=== PATIENT | male | born 1960 | race African-American/Black ===

== ENCOUNTER 2018-04-17 16:48 | Inpatient (IN) | payer OTHER ==
--- NOTE | 2018-04-17 20:45 | HP ---
COWS - Scale Resting Pulse: 0= [place] 80 or Below Sweatin=Flushed/Facial Moisture Restless Observation: 1= Difficult to Sit Still Pupil Size: 1= Pupils >than Normal Bone or Joint Aches: 4=Acute Joint/Muscle Pain Runny Nose/ Eye Tearin= Runny Nose/Eyes GI Upset > 30mins: 3= Vomiting/Diarrhea (vomiting x 1, diarrhea x 2) Tremor Observation: 2= Slight Tremor Visible Yawning Observation: 0= None Anxiety or Irritability: 1=Feels Anxious/Irritable Goose Flesh Skin: 0=Smooth Skin COWS Score: 16 CIWA Score Nausea/Vomitin (vomiting x 1) Muscle Tremors: 3 Anxiety: 3 Agitation: 0-Normal Activity Paroxysmal Sweats: 2 Orientation: 0-Oriented Tacttile Disturbances: 2-Mild Itch/Numbness/Burn Auditory Disturbances: 0-None Visual Disturbances: 0-None Headache: 4-Moderately Severe CIWA-Ar Total Score: 16 - Admission Criteria [facility] Guidelines: Admission for Medically Managed Detox: Requires at least one of the followin. CIWA greater than 12 2. Seizures within the past 24 hours 3. Delirium tremens within the past 24 hours 4. Hallucinations within the past 24 hours 5. Acute intervention needed for co occurring medical disorder 6. Acute intervention needed for co occurring psychiatric disorder 7. Severe withdrawal that cannot be handled at a lower level of care (continued vomiting, continued diarrhea, abnormal vital signs) requiring intravenous medication and/or fluids 8. Admission ROS [facility] Chief Complaint: Heroin and alcohol withdrawal symptoms Allergies/Adverse Reactions: Allergies Allergy/AdvReac Type Severity Reaction Status Date / Time naproxen [From Naprosyn] Allergy Verified 04/17/18 20:49 History of Present Illness: 57 years old male with a history of heroin and alcohol dependence is seeking admission to detox. Patient has been in detox at [facility] and reports a year of sobriety. He denies past medical history and suicidal attempt/ ideation at this time. Exam Limitations: No Limitations - Ebola screening Have you traveled outside of the country in the last 21 days: No (N) Have you had contact with anyone from an Ebola affected area: No Do you have a fever: No - Review of Systems Constitutional: Chills, Loss of Appetite, Night Sweats, Changes in sleep EENT: reports: No Symptoms Reported Respiratory: reports: No Symptoms reported Cardiac: reports: No Symptoms Reported GI: reports: Diarrhea, Nausea, Poor Appetite, Poor Fluid Intake, Abdominal cramping : reports: No Symptoms Reported Musculoskeletal: reports: Joint Pain, Muscle Pain Integumentary: reports: Dryness Neuro: reports: Headache, Tremors Endocrine: reports: No Symptoms Reported Hematology: reports: No Symptoms Reported Psychiatric: reports: Mood/Affect Appropiate, Orientated x3, Agitated Other Systems: Reviewed and Negative Patient History - Patient Medical History Hx Anemia: No Hx Asthma: No Hx Chronic Obstructive Pulmonary Disease (COPD): No Hx Cancer: No Hx Cardiac Disorders: No Hx Congestive Heart Failure: No Hx Hypertension: No Hx Hypercholesterolemia: No HX Cerebrovascular Accident: No Hx Seizures: No Hx Dementia: No Hx Diabetes: No Hx Gastrointestinal Disorders: No Hx Liver Disease: No Hx Genitourinary Disorders: No Hx Sexually Transmitted Disorders: No Hx Renal Disease (ESRD): No Hx Thyroid Disease: No Hx Human Immunodeficiency Virus (HIV): No (Negative 2018) Hx Hepatitis C: No Hx Depression: No Hx Suicide Attempt: No (Denies suicidal ideation at this time) Hx Bipolar Disorder: No Hx Schizophrenia: No - Patient Surgical History Past Surgical History: No - PPD History Previous Implant?: Yes Documented Results: Negative w/o proof Implanted On Prior [facility] Admission?: No PPD to be Administered?: Yes - Reproductive History Patient is a Female of Child Bearing Age (11 -55 yrs old): No (MALE) - Smoking Cessation Smoking history: Current every day smoker Have you smoked in the past 12 months: Yes Aproximately how many cigarettes per day: 2 Hx Chewing Tobacco Use: No Initiated information on smoking cessation: Yes 'Breaking Loose' booklet given: 04/17/18 - Substance & Tx. History Hx Alcohol Use: Yes Hx Substance Use: Yes Substance Use Type: Alcohol, Cocaine, Heroin, Opiates Hx Substance Use Treatment: Yes - Substances Abused Heroin Route: Inhalation Frequency: Daily Amount used: 20 BAGS Age of first use: 24 Date of Last Use: 04/17/18 Cocaine Route: Smoking Frequency: Daily Amount used: 10 BAGS Age of first use: 24 Date of Last Use: 04/17/18 Alcohol Route: Oral Frequency: Daily Amount used: VODKA - 3 NIPS, AC BEER - 2 BOTTLES Age of first use: 15 Date of Last Use: 04/17/18 Family Disease History - Family Disease History Family History: Denies Admission Physical Exam [facility] - Physical General Appearance: Yes: Moderate Distress, Tremorous, Irritable HEENTM: Yes: EOMI, Normal ENT Inspection, Normal Voice, BINTA, Microcephalic Respiratory: Yes: Normal Breath Sounds, No Respiratory Distress Neck: Yes: Supple Breast: Yes: Breast Exam Deferred Cardiology: Yes: Regular Rhythm, Tachycardia Abdominal: Yes: Within Normal Limits Genitourinary: Yes: Within Normal Limits Back: Yes: Normal Inspection Extremities: Yes: Tremors, Other (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 PATIENT REPORTS THAT HE WAS INJURED WHILE WORKING. 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, Alert, Normal Mood/Affect Integumentary: Yes: Warm Lymphatic: Yes: Within Normal Limits - Diagnostic (1) Alcohol dependence with uncomplicated withdrawal Current Visit: Yes Status: Chronic (2) Cocaine dependence, uncomplicated Current Visit: Yes Status: Chronic (3) Opioid dependence with withdrawal Current Visit: Yes Status: Chronic (4) Nicotine dependence Current Visit: Yes Status: Chronic Qualifiers: Nicotine product type: cigarettes Substance use status: uncomplicated Qualified Code(s): F17.210 - Nicotine dependence, cigarettes, uncomplicated Cleared for Admission [facility] - Detox or Rehab [facility] Level of Care: Medically Managed Detox Regimen/Protocol: Methadone/Librium
[2018-04-17] MEDS ORDERED: guaiFENesin/D-METHORPHAN HB 10 ML UNIT-DOSE CUPS PO PRN (21:22)
[2018-04-17] MEDS ORDERED: MENTHOL/PHENOL 1 EACH UD MM PRN (21:22)
[2018-04-17] MEDS ORDERED: LOPERAMIDE HCL 2 MG CAPSULE PO PRN (21:22)
[2018-04-17] MEDS ORDERED: NICOTINE POLACRILEX 2 MG GUM BC PRN (21:22)
[2018-04-17] MEDS ORDERED: METHADONE HCL 10 MG TABLET (FOR DETOX USE ONLY) PO ONE ×2 (21:22→23:00)
[2018-04-17] MEDS ORDERED: P-EPHED 60MG/TRIPROLIDI 2.5MG TABLET PO PRN (21:22)
[2018-04-17] MEDS ORDERED: MAGNESIUM CITRATE 300 ML BOTTLE PO PRN (21:22)
[2018-04-17] MEDS ORDERED: IBUPROFEN 400 MG TABLET (FP) PO PRN (21:22)
[2018-04-17] MEDS ORDERED: MAGNESIUM HYDROX 2400MG/30ML ORAL SUSPENSION 30 ML CUP PO PRN (21:22)
[2018-04-17] MEDS ORDERED: chlordiazePOXIDE HCL 25 MG CAPSULE PO PRN (21:22)
[2018-04-17] MEDS ORDERED: MAG HYDROX/AL HYDROX/SIMETH 30 ML UNIT-DOSE CUP PO PRN (21:22)
[2018-04-17] MEDS ORDERED: MELATONIN 5 MG TABLETS PO PRN (22:00)
[2018-04-17] MEDS: chlordiazePOXIDE HCL 25 MG CAPSULE PO SCH (23:38)
[2018-04-17] MEDS: ACETAMINOPHEN 325 MG TABLET (FP) PO PRN (23:42)
[2018-04-17] MEDS: THIAMINE HCL 100 MG TABLET (FP) PO SCH (23:43)
[2018-04-18] MEDS: chlordiazePOXIDE HCL 25 MG CAPSULE PO SCH ×4 (05:21→22:19)
[2018-04-18 09:59] LABS: HEMOGLOBIN 11.3 GM/dL (11.7-16.9); RDW 15.6 % (11.9-15.9)
[2018-04-18] MEDS ORDERED: METHADONE HCL 10 MG TABLET (FOR DETOX USE ONLY) PO SCH (10:00)
[2018-04-18 10:05] LABS: MCH 28.3 pg (25.7-33.7); MCHC 34.2 g/dl (32.0-35.9); MEAN CELL VOLUME 82.8 fl (80-96); PLATELET COUNT 287 K/MM3 (134-434); RBC 3.98 M/mm3 (4.00-5.60); WHITE BLOOD COUNT 4.3 K/mm3 (4.0-10.0)
--- NOTE | 2018-04-18 10:24 | PN ---
[facility] CIWA - CIWA Score Nausea/Vomitin-Mild Nausea/No Vomiting Muscle Tremors: 3 Anxiety: 2 Agitation: 3 Paroxysmal Sweats: 1-Minimal Palms Moist Orientation: 1-Uncertain about Date Tacttile Disturbances: 0-None Auditory Disturbances: 0-None Visual Disturbances: 0-None Headache: 1-Very Mild CIWA-Ar Total Score: 12 [facility] COWS - Scale Resting Pulse: 0= [place] 80 or Below Sweatin= Chills/Flushing Restless Observation: 1= Difficult to Sit Still Pupil Size: 0= Normal to Room Light Bone or Joint Aches: 2= Severe Diffuse Aches Runny Nose/ Eye Tearin= Nasal Congestion GI Upset > 30mins: 2= Nausea/Diarrhea Tremor Observation of Outstretched Hands: 1= Tremor [place], Not Seen Yawning Observation: 1= 1-2x During Session Anxiety or Irritability: 2=Irritable/Anxious Goose Flesh Skin: 0=Smooth Skin COWS Score: 11 [facility] Progress Note (SOAP) Subjective: left hand dressing intact no acute bleeding encourage elevation of the left arm at all time left hand trauma "two" months ago "got infected" went to the hospital to "clean up" few weeks ago, feeling better Objective: 04/18/18 12:22 Vital Signs Temperature 98.4 F 04/18/18 10:56 Pulse Rate 70 04/18/18 10:56 Respiratory Rate 20 04/18/18 10:56 Blood Pressure 106/63 04/18/18 10:56 O2 Sat by Pulse Oximetry (%) Laboratory Last Values WBC 4.3 K/mm3 (4.0-10.0) 04/18/18 08:00 RBC 3.98 M/mm3 (4.00-5.60) L 04/18/18 08:00 Hgb 11.3 GM/dL (11.7-16.9) L 04/18/18 08:00 Hct 33.0 % (35.4-49) L 04/18/18 08:00 MCV 82.8 fl (80-96) 04/18/18 08:00 MCH 28.3 pg (25.7-33.7) 04/18/18 08:00 MCHC 34.2 g/dl (32.0-35.9) 04/18/18 08:00 RDW 15.6 % (11.9-15.9) 04/18/18 08:00 Plt Count 287 K/MM3 (134-434) 04/18/18 08:00 MPV 8.0 fl (7.5-11.1) 04/18/18 08:00 Sodium 141 mmol/L (136-145) 04/18/18 08:00 Potassium 4.1 mmol/L (3.5-5.1) 04/18/18 08:00 Chloride 108 mmol/L (98-107) H 04/18/18 08:00 Carbon Dioxide 28 mmol/L (21-32) 04/18/18 08:00 Anion Gap 5 MMOL/L (8-16) L 04/18/18 08:00 BUN 13 mg/dL (7-18) 04/18/18 08:00 Creatinine 1.0 mg/dL (0.55-1.3) 04/18/18 08:00 Creat Clearance w eGFR > 60 (>60) 04/18/18 08:00 Random Glucose 84 mg/dL (74-106) 04/18/18 08:00 Calcium 8.3 mg/dL (8.5-10.1) L 04/18/18 08:00 Total Bilirubin 0.2 mg/dL (0.2-1) 04/18/18 08:00 AST 19 U/L (15-37) 04/18/18 08:00 ALT 26 U/L (13-61) 04/18/18 08:00 Alkaline Phosphatase 76 U/L (45-117) 04/18/18 08:00 Total Protein 5.4 g/dl (6.4-8.2) L 04/18/18 08:00 Albumin 2.8 g/dl (3.4-5.0) L 04/18/18 08:00 RPR Titer Nonreactive (NONREACTIVE) 04/18/18 08:00 lab noted Assessment: 04/18/18 12:23 withdrawal sx Plan: continue detox elevation of the left arm
[2018-04-18] MEDS: PRENATAL VITAMINS W/ FOLIC ACID TABLET (FP) PO SCH (11:11)
[2018-04-18] MEDS: ACETAMINOPHEN 325 MG TABLET (FP) PO PRN ×2 (11:11→17:41)
[2018-04-18] MEDS: NICOTINE 14 MG/24 HOURS TOPICAL PATCH TD SCH (11:13)
[2018-04-18 11:24] LABS: ALBUMIN 2.8 g/dl (3.4-5.0); ALK PHOS 76 U/L (45-117); ANION GAP 5 MMOL/L (8-16); BILIRUBIN,TOTAL 0.2 mg/dL (0.2-1); BLOOD UREA NITROGEN 13 mg/dL (7-18); CALCIUM 8.3 mg/dL (8.5-10.1); CHLORIDE 108 mmol/L (98-107); CO2 28 mmol/L (21-32); GLUCOSE,RANDOM 84 mg/dL (74-106); POTASSIUM 4.1 mmol/L (3.5-5.1); SGOT/AST 19 U/L (15-37); SGPT/ALT 26 U/L (13-61); SODIUM 141 mmol/L (136-145); TOT PROT 5.4 g/dl (6.4-8.2)
[2018-04-18] MEDS ORDERED: BACITRACIN 0.9 GM PACKET TP ONE (12:45)
[2018-04-18 15:22] VITALS: BMI 20.5
[2018-04-18] MEDS: SODIUM CHLORIDE NASAL SPRAY 44 ML BOTTLE NS SCH ×2 (15:31→22:18)
[2018-04-18] MEDS: THIAMINE HCL 100 MG TABLET (FP) PO SCH (22:19)
[2018-04-19] MEDS: SODIUM CHLORIDE NASAL SPRAY 44 ML BOTTLE NS SCH ×3 (05:29→22:32)
[2018-04-19] MEDS: chlordiazePOXIDE HCL 25 MG CAPSULE PO SCH ×3 (05:29→17:40)
[2018-04-19] MEDS: ACETAMINOPHEN 325 MG TABLET (FP) PO PRN ×2 (05:31→10:42)
--- NOTE | 2018-04-19 09:32 | PN ---
S CIWA - CIWA Score Nausea/Vomitin-Mild Nausea/No Vomiting Muscle Tremors: 3 Anxiety: 2 Agitation: 2 Paroxysmal Sweats: 1-Minimal Palms Moist Orientation: 0-Oriented Tacttile Disturbances: 0-None Auditory Disturbances: 0-None Visual Disturbances: 0-None Headache: 2-Mild CIWA-Ar Total Score: 11 [facility] COWS - Scale Resting Pulse: 0= [place] 80 or Below Sweatin= Chills/Flushing Restless Observation: 0= Sits Still Pupil Size: 0= Normal to Room Light Bone or Joint Aches: 1= Mild Discomfort Runny Nose/ Eye Tearin= Nasal Congestion GI Upset > 30mins: 1= Stomach Cramp Tremor Observation of Outstretched Hands: 1= Tremor [place], Not Seen Yawning Observation: 1= 1-2x During Session Anxiety or Irritability: 2=Irritable/Anxious Goose Flesh Skin: 0=Smooth Skin COWS Score: 8 S Progress Note (SOAP) Subjective: body aches muscle pain tremor sweat reported left hand feeling better, dressing was changed and denies pain wrist free range of motion +2 pulse 4th finger tig warm to touch pink Objective: 04/19/18 09:35 Vital Signs Temperature 98.5 F 04/19/18 09:15 Pulse Rate 71 04/19/18 09:15 Respiratory Rate 18 04/19/18 09:15 Blood Pressure 97/61 04/19/18 09:15 O2 Sat by Pulse Oximetry (%) Laboratory Last Values WBC 4.3 K/mm3 (4.0-10.0) 04/18/18 08:00 RBC 3.98 M/mm3 (4.00-5.60) L 04/18/18 08:00 Hgb 11.3 GM/dL (11.7-16.9) L 04/18/18 08:00 Hct 33.0 % (35.4-49) L 04/18/18 08:00 MCV 82.8 fl (80-96) 04/18/18 08:00 MCH 28.3 pg (25.7-33.7) 04/18/18 08:00 MCHC 34.2 g/dl (32.0-35.9) 04/18/18 08:00 RDW 15.6 % (11.9-15.9) 04/18/18 08:00 Plt Count 287 K/MM3 (134-434) 04/18/18 08:00 MPV 8.0 fl (7.5-11.1) 04/18/18 08:00 Sodium 141 mmol/L (136-145) 04/18/18 08:00 Potassium 4.1 mmol/L (3.5-5.1) 04/18/18 08:00 Chloride 108 mmol/L (98-107) H 04/18/18 08:00 Carbon Dioxide 28 mmol/L (21-32) 04/18/18 08:00 Anion Gap 5 MMOL/L (8-16) L 04/18/18 08:00 BUN 13 mg/dL (7-18) 04/18/18 08:00 Creatinine 1.0 mg/dL (0.55-1.3) 04/18/18 08:00 Creat Clearance w eGFR > 60 (>60) 04/18/18 08:00 Random Glucose 84 mg/dL (74-106) 04/18/18 08:00 Calcium 8.3 mg/dL (8.5-10.1) L 04/18/18 08:00 Total Bilirubin 0.2 mg/dL (0.2-1) 04/18/18 08:00 AST 19 U/L (15-37) 04/18/18 08:00 ALT 26 U/L (13-61) 04/18/18 08:00 Alkaline Phosphatase 76 U/L (45-117) 04/18/18 08:00 Total Protein 5.4 g/dl (6.4-8.2) L 04/18/18 08:00 Albumin 2.8 g/dl (3.4-5.0) L 04/18/18 08:00 RPR Titer Nonreactive (NONREACTIVE) 04/18/18 08:00 lab noted ca++ rich food Assessment: 04/19/18 09:37 withdrawal sx Plan: continue detox
[2018-04-19] MEDS ORDERED: BACITRACIN 0.9 GM PACKET TP SCH (10:00)
[2018-04-19] MEDS: METHADONE HCL 5 MG TABLET (FOR DETOX USE ONLY) PO SCH (10:39)
[2018-04-19] MEDS: NICOTINE 14 MG/24 HOURS TOPICAL PATCH TD SCH (10:43)
[2018-04-19] MEDS: PRENATAL VITAMINS W/ FOLIC ACID TABLET (FP) PO SCH (11:06)
[2018-04-19] MEDS: NEOMYCIN/POLYMYXIN/BACITRACIN (TRIPLE ANTIBIOTIC) 28 GM OINTMENT TP SCH (15:38)
[2018-04-19 17:22] LABS: URINE APPEARANCE CLEAR; URINE BILIRUBIN NEGATIVE (<2.0 mg/dL); URINE COLOR STRAW; URINE GLUCOSE (UA) NEGATIVE (NEGATIVE); URINE KETONE NEGATIVE (NEGATIVE); URINE LEUK ESTERASE NEGATIVE (NEGATIVE); URINE NITRITE NEGATIVE (NEGATIVE); URINE PROTEIN NEGATIVE (NEGATIVE); URINE UROBILINOGEN NEGATIVE mg/dL (0.2-1.0)
[2018-04-19] MEDS: chlordiazePOXIDE 5 MG CAPSULE PO SCH (22:32)
[2018-04-19] MEDS: THIAMINE HCL 100 MG TABLET (FP) PO SCH (22:32)
[2018-04-20] MEDS: chlordiazePOXIDE 5 MG CAPSULE PO SCH ×3 (05:13→17:21)
[2018-04-20] MEDS: ACETAMINOPHEN 325 MG TABLET (FP) PO PRN ×3 (05:13→22:47)
[2018-04-20] MEDS: SODIUM CHLORIDE NASAL SPRAY 44 ML BOTTLE NS SCH ×3 (07:00→22:13)
--- NOTE | 2018-04-20 09:27 | PN ---
[facility] Progress Note (SOAP) Subjective: alert,irritable,pain in the left ring finger,body Objective: 04/20/18 09:20 Vital Signs Temperature 97.7 F 04/20/18 06:31 Pulse Rate 118 H 04/20/18 06:31 Respiratory Rate 18 04/20/18 06:31 Blood Pressure 106/74 04/20/18 06:31 O2 Sat by Pulse Oximetry (%) Assessment: 04/20/18 09:21 left ring finger marked swelling with pain and tenderness,wound palmar surface of left ring finger ,unable to do flexion of left ring finger, and extension,injuty at the end of February 2018 has been treated at [facility] admitted for 12 days,discharged in March 2018,drainage from the wound, clean with nss and tiple antibiotics ointment 04/20/18 09:28 Plan: patient to be transferred to [facility] er for evaluation and treatment impression old laceration with infected wound of left ring finger r/o tendon injury,r/o osteomyelitis marked swelling and limitation of movement opioid dependence with withdrawal cocaine dependence cannabis dependence treatment to er for evaluation and treatment,spoke with dr.Norman Leary ,endorsed to to be transported by [facility]
[2018-04-20] MEDS: PRENATAL VITAMINS W/ FOLIC ACID TABLET (FP) PO SCH (10:24)
[2018-04-20] MEDS: METHADONE HCL 5 MG TABLET (FOR DETOX USE ONLY) PO SCH (10:24)
[2018-04-20] MEDS: NEOMYCIN/POLYMYXIN/BACITRACIN (TRIPLE ANTIBIOTIC) 28 GM OINTMENT TP SCH (10:37)
[2018-04-20] MEDS: NICOTINE 14 MG/24 HOURS TOPICAL PATCH TD SCH (11:40)
[2018-04-20] MEDS: THIAMINE HCL 100 MG TABLET (FP) PO SCH (22:13)
[2018-04-20] MEDS: chlordiazePOXIDE HCL 10 MG CAPSULE PO SCH (22:13)
[2018-04-21] MEDS: SODIUM CHLORIDE NASAL SPRAY 44 ML BOTTLE NS SCH (05:27)
[2018-04-21] MEDS: chlordiazePOXIDE HCL 10 MG CAPSULE PO SCH (05:27)
[2018-04-21] MEDS: ACETAMINOPHEN 325 MG TABLET (FP) PO PRN (05:28)
[2018-04-21 06:12] VITALS: BP 98/61; PULSE 68; TEMP 98.6
[2018-04-21] MEDS ORDERED: METHADONE HCL 10 MG TABLET (FOR DETOX USE ONLY) PO SCH (10:00)
[2018-04-21] MEDS ORDERED: METHADONE HCL 5 MG TABLET (FOR DETOX USE ONLY) PO ONE (10:00)
--- NOTE | 2018-04-21 11:49 | DS ---
[facility] Detox Discharge Summary Admission Date: 04/17/18 Discharge Date: 04/21/18 - History Present History: Alcohol Dependence, Opioid Dependence Additional Comments: PT REPORTS HE HAS APPOINTMENT FOLLOW UP FOR SURGERY OF HIS LEFT FINGERS ON AT [facility]. PT WAS SEEN AT [facility] ER 04/20/17 FOR PAIN TO SAME AREA(PLEASE SEE ER NOTE). PT DECIDED TO LEAVE TODAY ON HIS OWN AFTER MAKING A PHONE CALL TO HIS WHO INSTRUCTED PT TO COME HOME TODAY INSTEAD OF TOMORROW PER PATIENT TO STAFF. ALERT O X 3 WITH STEADY GAIT. NAD BUT FOR FINGER PAIN. Pertinent Past History: PLEASE SEE DX BELOW - Physical Exam Results Vital Signs: Vital Signs Temperature 98.6 F 04/21/18 06:11 Pulse Rate 68 04/21/18 06:11 Respiratory Rate 16 04/21/18 06:11 Blood Pressure 98/61 04/21/18 06:11 O2 Sat by Pulse Oximetry (%) Pertinent Admission Physical Exam Findings: WITHDRAWAL SX Laboratory Tests 04/18/18 04/18/18 04/18/18 08:00 08:00 08:00 WBC 4.3 RBC 3.98 L Hgb 11.3 L Hct 33.0 L MCV 82.8 MCH 28.3 MCHC 34.2 RDW 15.6 Plt Count 287 MPV 8.0 Sodium 141 Potassium 4.1 Chloride 108 H Carbon Dioxide 28 Anion Gap 5 L BUN 13 Creatinine 1.0 Creat Clearance w eGFR > 60 Random Glucose 84 Calcium 8.3 L Total Bilirubin 0.2 AST 19 ALT 26 Alkaline Phosphatase 76 Total Protein 5.4 L Albumin 2.8 L Urine Color Urine Appearance Urine pH Ur Specific Bath Urine Protein Urine Glucose (UA) Urine Ketones Urine Blood Urine Nitrite Urine Bilirubin Urine Urobilinogen Ur Leukocyte Esterase RPR Titer Nonreactive 04/19/18 12:45 WBC RBC Hgb Hct MCV MCH MCHC RDW Plt Count MPV Sodium Potassium Chloride Carbon Dioxide Anion Gap BUN Creatinine Creat Clearance w eGFR Random Glucose Calcium Total Bilirubin AST ALT Alkaline Phosphatase Total Protein Albumin Urine Color Straw Urine Appearance Clear Urine pH 5.0 Ur Specific Bath 1.015 Urine Protein Negative Urine Glucose (UA) Negative Urine Ketones Negative Urine Blood Negative Urine Nitrite Negative Urine Bilirubin Negative Urine Urobilinogen Negative Ur Leukocyte Esterase Negative RPR Titer - Treatment Hospital Course: Discharged Condition Good - Medication Discharge Medications: Ambulatory Orders Neomycin/Bacitracin/Polymyxinb [Triple Antibiotic Ointment] 1 each TP DAILY 05/05 Oxycodone HCl/Acetaminophen [Percocet 10-325 mg Tablet] 1 each PO 04/17/18 - Diagnosis (1) Abscess of left ring finger Status: Acute (2) Flexor tenosynovitis of finger Status: Acute (3) Alcohol dependence with uncomplicated withdrawal Status: Acute (4) Cocaine dependence, uncomplicated Status: Acute (5) Nicotine dependence Status: Chronic Qualifiers: Nicotine product type: cigarettes Substance use status: in withdrawal Qualified Code(s): F17.213 - Nicotine dependence, cigarettes, with withdrawal (6) Opioid dependence with withdrawal Status: Acute - AMA Did Patient Leave Against Medical Advice: Yes (AMA)
[2018-04-22] MEDS ORDERED: METHADONE HCL 5 MG TABLET (FOR DETOX USE ONLY) PO SCH (06:00)
== END 2018-04-21 10:03 | disposition left against medical advice (07) | DRG 770 ==
LOC: EDBD → YASAS 16:48 → Y3N 22:47
PROC: HZ2ZZZZ Detoxification Services for Substance Abuse Treatment (ICD-10-PCS; principal; 2018-04-17)
DX: F11.23 Opioid dependence with withdrawal (principal); F10.230 Alcohol dependence with withdrawal, uncomplicated; F14.20 Cocaine dependence, uncomplicated; F17.210 Nicotine dependence, cigarettes, uncomplicated; R00.0 Tachycardia, unspecified; L02.512 Cutaneous abscess of left hand; M65.842 Other synovitis and tenosynovitis, left hand
CPT/HCPCS: 36415; 80053; 81003; 85027; 86593

== ENCOUNTER 2018-04-20 11:41 | Emergency (ER) | payer OTHER ==
--- NOTE | 2018-04-20 12:03 | PDOC ---
History of Present Illness - General Chief Complaint: Wound Stated Complaint: Wound Time Seen by Provider: 04/20/18 11:59 History Source: Patient Exam Limitations: No Limitations - History of Present Illness Initial Comments: 57 yo M with no reported medical history presents from [facility] for evaluation of an abscess on on his left ring finger. He reports that he injured his finger in late February while he was working. He originally had it followed and treated at the [facility] in [place] before he came to [facility] but now that he is in [facility] ho no longer has a vascular doctor or a primary care doctor. He was admitted in [place] for 12 days. He has significant pain and tenderness on his finger, is unable to flex or extend the finger. He has been applying Abx cream to the finger. He denies fevers, chills, or infections. Denies chest pain, SOB, difficulty breathing, dysuria, frequency, or urgency. PCP: None Vascular surgeon: None Allergies: naproxen, egg, milk Social Hx: Opiod dependence and withdrawal, alcohol dependence, cocaine dependence, nicotine dependence. PSH: None reported. Past History - Past Medical History Allergies/Adverse Reactions: Allergies Allergy/AdvReac Type Severity Reaction Status Date / Time naproxen [From Naprosyn] Allergy Verified 04/17/18 20:49 egg AdvReac Verified 04/17/18 22:35 milk AdvReac Verified 04/17/18 22:34 Home Medications: Ambulatory Orders Neomycin/Bacitracin/Polymyxinb [Triple Antibiotic Ointment] 1 each TP DAILY 05/05 Oxycodone HCl/Acetaminophen [Percocet 10-325 mg Tablet] 1 each PO 04/17/18 Anemia: No Asthma: No Cancer: No Cardiac Disorders: No CVA: No COPD: No CHF: No Dementia: No Diabetes: No GI Disorders: No Disorders: No HTN: No Hypercholesterolemia: No Kidney Stones: No Liver Disease: No Seizures: No Thyroid Disease: No - Surgical History Abdominal Surgery: No Appendectomy: No Cardiac Surgery: No Cholecystectomy: No Lung Surgery: No Neurologic Surgery: No Orthopedic Surgery: No - Reproductive History Testicular Surgery: No - Suicide/Smoking/Psychosocial Hx Smoking History: Current every day smoker Have you smoked in the past 12 months: Yes Number of Cigarettes Smoked Daily: 2 'Breaking Loose' booklet given: 04/17/18 Hx Alcohol Use: Yes Drug/Substance Use Hx: Yes Substance Use Type: Alcohol, Cocaine, Heroin, Opiates Hx Substance Use Treatment: Yes Review of Systems - Review of Systems Able to Perform ROS?: Yes Comments:: CONSTITUTIONAL: Absent: fever, no chills, no fatigue EYES: Absent: visual changes ENT: Absent: ear pain, no sore throat CARDIOVASCULAR: Absent: chest pain, no palpitations RESPIRATORY: Absent: cough, no SOB GI: Absent: abdominal pain, no nausea, no vomiting, no constipation, no diarrhea GENITOURINARY: Absent: dysuria, no frequency, no hematuria MUSKULOSKELETAL: Present: Finger arthralgia Absent: back pain, no myalgia SKIN: Absent: rash NEURO: Absent: headache *Physical Exam - Physical Exam Comments: GENERAL: Well-appearing, well-nourished. No apparent distress. HEENT: Normocephalic, atraumatic. PERRL, EOM intact. CARDIOVASCULAR: Normal S1, S2. Regular rate and rhythm. PULMONARY: Clear to auscultation bilaterally. ABDOMEN: Soft, non-distended, non-tender. EXTREMITIES: Normal ROM in other 3 extremities. No gross deformities. Left ring finger: There is an open wound on the volar aspect of the finger with sutures. Clearly infected. Absent skin covering. Tendon visible to eye and sticking out. Extremely painful to touch. Cannot flex or extend finger. SKIN: Warm, dry. NEUROLOGICAL: No focal neurological deficits. ED Treatment Course - LABORATORY CBC & Chemistry Diagram: 04/20/18 12:55 04/20/18 12:55 Medical Decision Making - Medical Decision Making 57 yo M with no reported medical history presents from [facility] for evaluation of an abscess on on his left ring finger. - VSS DDx IBNLT: osteomylitis, flexor tenosynovitis, eroded tendon, Abscess. Plan: Pre-OP labs, NPO, IV hydration, Acetaminophen, vascular/hand/ortho/ surgery consult, re-assess. Labs unremarkable and WNL - Spoke with "Sheron from Ortho" at [facility]. - Received multiple I&D's for flexor tenosynovitis. - Notorious malingerer - "lost his pain medicine script" - Drug seeking behavior - Planning to see him for FU in a week or 2 - Skin graft on volar aspect of finger. Return to office for skin graft removal/ treatment - He missed his appointment - Number for him to call - [phone] - Needs to follow up at [place] - Call and ask for Apr 24 on Monday in the orthopedic hospital Will DC patient and have him call the ortho clinic for an appointment on Monday at [facility] *DC/Admit/Observation/Transfer Diagnosis at time of Disposition: Flexor tenosynovitis of finger - Discharge Dispostion Disposition: HOME Condition at time of disposition: Stable Decision to Admit order: No - Referrals Referrals: [facility] Internal Med at [place] [Provider Group] - Patient Instructions Printed Discharge Instructions: DI for Tenosynovitis Additional Instructions: YOU MUST CALL [facility] AND SCHEDULE AN APPOINTMENT FOR THIS UPCOMING MondayApril CALL THIS NUMBER: [phone] ASK TO HAVE AN APPOINTMENT IN THE ORTHOPEDIC HOSPITAL ON MondayApril THEY WILL FIX YOUR FINGER COME BACK TO THE ER IF YOU GET A FEVER OR HAVE ANY OTHER NEW OR WORSENING CONCERNS. Print Language: AZERI - Post Discharge Activity
[2018-04-20 12:16] VITALS: BMI 20.5
[2018-04-20] MEDS ORDERED: SODIUM CHLORIDE 0.9% 500 ML INFUS.BAG IV ONE (12:17)
[2018-04-20] MEDS ORDERED: ACETAMINOPHEN 1000 MG/100 ML VIAL (NON FORMULARY) IVPB ONE (12:17)
--- NOTE | 2018-04-20 12:23 | PDOC ---
Attending Attestation - HPI HPI: 04/20/18 13:06 "The patient is a 57 year old male with a PMH of polysubstance abuse presenting with a wound to the left ring finger with associated redness, pain and swelling. 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 Patient was discharged home on the 04/06 with instructions on how to keep it clean and put antibiotics and was told to follow up with their surgeon (scheduled for Apr). Patient subsequently went to [facility] two days ago for detox but has not noticed any improvement since. Patient presents to the ER today for persistent pain. Patient denies any changes to his finger since discharge beside the pain including color changes, increased swelling, warmth, drainage/bleeding or discharge. States pain has been constant since discharge and he never filled his pain medication. The patient denies fever/chills, numbness/tingling/weakness, chest pain, shortness of breath, abd pain, back pain, fever, chills, nausea, vomit. Allergies: Naproxen, egg, milk Past surgical history: None reported. <Petra Staley - Last Filed: 04/20/18 14:20> - Resident Resident Name: Gilmer Arizmendi - ED Attending Attestation I have performed the following: I have examined & evaluated the patient, The case was reviewed & discussed with the resident, I agree w/resident's findings & plan, Exceptions are as noted - Physicial Exam PE: 04/20/18 12:54 GENERAL: The patient is awake, alert, and fully oriented, Nontoxic - in no acute distress. CARDIAC: RRR, no mrg PULM: CTA b/l ABDOMEN: Soft, nontender, No guarding, no rebound. . No CVA tenderness EXTREMITIES: Normal range of motion, +R ring finger - held in flexion, slightly edemadous, blister/desqualmation (appears chronic) on dorsal aspect, healing wound on volar aspect, dry, no discharge, not erythmadous, mild swelling of hand that is non induration, non tender, not warm to touch, ROM of R ring finger is limited (unable to flex finger) - Medical Decision Making 04/20/18 12:21 57y M hx of polysubstance abuse presents with ring finger, hx of trauma, was treated with abx and was transferred to [facility] for detox and was sent to the ED for evaution of worsening of his finger, is more red/swollen, painful. no associated fver/chills, cp, sob, n/v, abd pain, back pain 04/20/18 12:59 will obtain xray to r/o osteo labs to r/o metabolci dernagement, ck for elevated wbc suspect his finger is post surgical healing, no acute process apparent will attempt to reach out to his surgeon at [facility] to further evaluate. 04/20/18 14:17 Dw ortho team [facility] - pt was admitted on 03/21 for flexor tenosinovitis with multiple I&Ds, completed course of vancomycin, discharged on 04/05. was operated on by Dr. Bill (Ortho) - [phone] 04/21/18 08:[address] [facility] to continue detox and then pt can fu with the ortho team at [facility] 04/21/18 08:41 A portion of this note was documented by scribe services under my direction. I have reviewed the details of the note, within reason, and agree with the documentation with the following case summary and management plan written by me <Mj Siddiqui - Last Filed: 04/21/18 08:41>
[2018-04-20] MEDS ORDERED: ACETAMINOPHEN INJECTION 100 ML IVPB ONE (12:48)
[2018-04-20 13:05] LABS: BASO % 1.3 % (0-2.0); EOS % 5.8 % (0-4.5); HEMOGLOBIN 12.9 GM/dL (11.7-16.9); LYMPH % 32.9 % (8-40); MCH 27.9 pg (25.7-33.7); MEAN CELL VOLUME 82.1 fl (80-96); MEAN PLT VOLUME 7.4 fl (7.5-11.1); MONO % 9.3 % (3.8-10.2); NEUT % 50.7 % (42.8-82.8); PLATELET COUNT 212 K/MM3 (134-434); RBC 4.63 M/mm3 (4.00-5.60); RDW 16.1 % (11.9-15.9); WHITE BLOOD COUNT 5.6 K/mm3 (4.0-10.0)
[2018-04-20 13:27] LABS: ALBUMIN 3.1 g/dl (3.4-5.0); ALK PHOS 72 U/L (45-117); ANION GAP 5 MMOL/L (8-16); BILIRUBIN,TOTAL 0.1 mg/dL (0.2-1); BLOOD UREA NITROGEN 16 mg/dL (7-18); CALCIUM 8.8 mg/dL (8.5-10.1); CHLORIDE 108 mmol/L (98-107); CO2 26 mmol/L (21-32); GLUCOSE,RANDOM 111 mg/dL (74-106); POTASSIUM 4.3 mmol/L (3.5-5.1); SGOT/AST 20 U/L (15-37); SGPT/ALT 28 U/L (13-61); SODIUM 139 mmol/L (136-145); TOT PROT 6.3 g/dl (6.4-8.2)
[2018-04-20 13:32] LABS: INR 0.94 (0.83-1.09); PROTHROMBIN TIME (PATIENT) 11.1 SEC (9.7-13.0)
[2018-04-20 13:35] LABS: ACTIVATED PTT 26.9 SECONDS (25.2-36.5)
[2018-04-20 15:13] VITALS: BP 107/65; PULSE 85; TEMP 98.1
== END 2018-04-20 16:12 | disposition home or self-care (01) ==
LOC: JER 11:41
PROC: 3E033NZ Introduction of Analgesics, Hypnotics, Sedatives into Peripheral Vein, Percutaneous Approach (ICD-10-PCS; principal; 2018-04-20)
DX: M65.842 Other synovitis and tenosynovitis, left hand (principal); F11.20 Opioid dependence, uncomplicated; F10.20 Alcohol dependence, uncomplicated; F14.20 Cocaine dependence, uncomplicated; F17.210 Nicotine dependence, cigarettes, uncomplicated
CPT/HCPCS: 36415; 73140-TC-LT-FY; 80053; 85025; 85610; 85730; 86850; 86900; 86901; 96374; 99282-25; J0131